=== PATIENT | female | born 1940 | race Caucasian/White ===

== ENCOUNTER 2017-10-06 06:36 | Day surgery (SDC) | payer MEDICARE, BC ==
[~2017-10-06] VITALS: Ht 160 cm; Wt 80.5 kg
[2017-10-06 07:41] LABS: BASOPHILS 0.3 % (0-2); EOSINOPHILS 3.5 % (0-7); HEMATOCRIT 36.7 % (36.0-48.0); HEMOGLOBIN 12.6 g/dL (12-16); IMMATURE GRANULOCYTES 0.2 % (0-5); MCH 32.1 pg (26.0-34.0); MCHC 34.3 g/dL (31.0-37.0); MCV 93.4 fL (80.0-100.0); MEAN PLATELET VOLUME 9.8 fL (7.4-10.4); MONOCYTES 13.5 % (2-11); NEUTROPHILS 52.5 % (40-80); PLATELET COUNT 148 10x3/uL (130-400); RBC 3.93 10x6/uL (4.00-5.40); RDW 12.7 % (11.5-14.5); WBC 5.9 10x3/uL (4.8-10.8)
[2017-10-06 07:54] LABS: CALC OSMOLALITY 279 mosm/kg (275-300); CALCIUM 8.8 mg/dL (8.5-10.1); CARBON DIOXIDE 27.7 mmol/L (21.0-32.0); CHLORIDE - SERUM 104 mmol/L (98-107); CREATININE - SERUM 0.6 mg/dL (0.6-1.3); GLUCOSE 99 mg/dL (74-106); POTASSIUM - SERUM 3.4 mmol/L (3.5-5.1); SODIUM 141 mmol/L (136-145); UREA NITROGEN 11 mg/dL (7-18); eGFR NON AFRICAN AMERICAN > 90 mL/min (90-120)
[2017-10-06] MEDS ORDERED: LIPITOR10 MG (07:56)
[2017-10-06] MEDS ORDERED: ARMOUR THYROID60 M1 PO (07:57)
[2017-10-06] MEDS ORDERED: ARMOUR THYROID120 MG PO (07:57)
[2017-10-06] MEDS ORDERED: DIOVAN HCT 160/1 TAB PO (07:58)
[2017-10-06] MEDS ORDERED: PRESERVISION AR1 CAP PO (07:59)
[2017-10-06] MEDS ORDERED: CRANBERRY 400 M1 TA1 PO (07:59)
[2017-10-06] MEDS ORDERED: ZEAXANTHIN (08:00)
[2017-10-06] MEDS ORDERED: OMEGA 3 FISH OI1 CAP PO (08:01)
[2017-10-06] MEDS ORDERED: VITAMIN B COMPL1 TAB PO (08:01)
[2017-10-06] MEDS ORDERED: VITAMIN K2 (08:02)
[2017-10-06] MEDS ORDERED: VITAMIN A10000 UNIT PO (08:02)
[2017-10-06] MEDS ORDERED: VITAMIN C1000 MG (08:03)
[2017-10-06] MEDS ORDERED: VITAMIN D31000 UNIT PO (08:03)
[2017-10-06] MEDS ORDERED: BAYER CHEWABLE81 MG PO (08:03)
[2017-10-06] MEDS ORDERED: GALZIN50 MG PO (08:04)
[2017-10-06] MEDS ORDERED: CITRACAL + D E1 EACH PO (08:04)
[2017-10-06] MEDS ORDERED: MAGNESIUM GLUC500 M1 PO (08:04)
[2017-10-06] MEDS ORDERED: SELENIUM (08:05)
[2017-10-06] MEDS ORDERED: VITAMIN E400 UNI2 PO (08:05)
[2017-10-06] MEDS ORDERED: CHROMIUM PICO200 MC1 PO (08:05)
[2017-10-06] MEDS ORDERED: CO Q-10200 MG PO (08:06)
[2017-10-06] MEDS ORDERED: POTASSIUM99 M1 PO (08:06)
[2017-10-06] MEDS ORDERED: METHYFOLATE (08:07)
[2017-10-06] MEDS ORDERED: FIBERCON625 MG PO (08:07)
[2017-10-06] MEDS ORDERED: VITAMIN B 12 (08:08)
[2017-10-06] MEDS ORDERED: [UNRECOGNIZED DRUG - OTHER] (08:08)
[2017-10-06] MEDS ORDERED: ALPHA LIPOIC ACID (08:09)
[2017-10-06] MEDS ORDERED: BIOTIN5 MG PO (08:09)
[2017-10-06] MEDS ORDERED: L-LYSINE500 M1 (08:09)
[2017-10-06] MEDS ORDERED: [UNRECOGNIZED DRUG - OTHER] (08:10)
[2017-10-06 08:29] VITALS: BP 148/56; Ht 160 cm; Wt 80.5 kg
--- NOTE | 2017-10-06 10:30 | NUR ---
PT REC'D TO ROOM VIA STRETCHER. DROWSY, BUT RESPONDS TO VERBAL STIMULI. REQUESTED AND PROVIDED WATER.
--- NOTE | 2017-10-06 10:52 | NUR ---
ASSISTED UP TO BR, VOIDED, PASSED GAS AND BM. WASHCLOTHES PROVIDED.
--- NOTE | 2017-10-06 11:11 | NUR ---
IV D/C'D INTACT. D/C INSTRUCTIONS EXPLAINED TO PT. VOICED UNDERSTANDING. COPIES OF ALL GIVEN TO PT.
--- NOTE | 2017-10-06 11:17 | NUR ---
D/C'D HOME VIA W/C TO PRIVATE CAR.
--- NOTE | 2017-10-13 15:43 | OP ---
PATIENT NAME: RODRIGO BONILLA MEDICAL RECORD: [id number] :36 LOCATION:D.OPS ADMISSION DATE: SURGEON: SEDRICK DEVI MD DATE OF OPERATION: 10/06/2017 PREOPERATIVE DIAGNOSIS: History of colon polyps, in need of a surveillance colonoscopy. POSTOPERATIVE DIAGNOSES: History of colon polyps, in need of a surveillance colonoscopy with mild pandiverticulosis, no colonic masses, no colonic polyps. PROCEDURES: Total colonoscopy to cecum. SURGEON: Sedrick Devi MD NURSING COORDINATOR: None. BLOOD LOSS: Minimal. ANESTHESIA: IV sedation. COMPLICATIONS: None. The prep was suboptimal. There was still solid fecal material within the colon and rectum. ENDOSCOPIC COURSE: The patient was conveyed to the gastroenterology laboratory on 10/06/2017. IV sedation was induced by anesthesia staff. The patient was placed in the Begum position. A digital rectal examination was performed. A colonoscope was inserted through the anus. It was easily advanced to the cecum. I irrigated and aspirated extensively. I dragged the folds. The pullback was greater than a 50-minute pullback. I noted no colonic polyps or masses. The endoscope was then withdrawn under direct vision. Unless the patient has new symptoms such as rectal bleeding, her next colonoscopy can wait for 3 years. TRANSINT:[id number] Voice Confirmation ID: [id number] DOCUMENT ID: [id number] SEDRICK DEVI MD at 1543 CC: [id number] DICTATION DATE: 10/06/17 1019 DIRECTOR CONTENT MARKETING: 10/06/17 1039 [facility] 10/06/[address] [address]
--- NOTE | 2017-10-13 15:43 | HP ---
PATIENT: RODRIGO BONILLA MEDICAL RECORD: [id number] ACCOUNT: [id number] LOCATION:[facility] : 36 ADMISSION DATE: 10/06/17 HISTORY AND PHYSICAL EXAMINATION CHIEF COMPLAINT: History of colon polyps. HISTORY OF PRESENT ILLNESS: The patient had a colonoscopy on 08/29/2014. She is here for surveillance colonoscopy. At that time, she was found to have polyps in the cecum and the proximal ascending colon. The polyps were tubular adenomas. It appears that both might have been placed in the same specimen container. I reviewed the endoscopic photos personally. The risks, possible complications, and alternatives to procedure were explained to the patient. She has been having right lower quadrant abdominal pain. ALLERGIES: Include LEVAQUIN, NOVOCAIN, MARCAINE, SHELLFISH, CHLOROMYCETIN, ADHESIVES, WELL POLYSORB SUTURES. HOME MEDICINES: 1. Multivitamin. 2. Atorvastatin. 3. Thyroid supplementation. 4. Valsartan. 5. Trazodone. 6. FiberCon. SOCIAL HISTORY: Ex-smoker. PAST MEDICAL AND SURGICAL HISTORY: Atrial fibrillation. She has had an ablation, hypothyroidism, on replacement therapy, history of cholecystectomy, history of knee surgery, history of thyroid surgery, history of hysterectomy, history of left foot surgery, history of cardiac ablation, also hypertension. REVIEW OF SYSTEMS: Negative for CVA or seizures. Negative for neurologic problems. PHYSICAL EXAMINATION: GENERAL: The patient does not appear acutely ill. She does not appear chronically ill. VITAL SIGNS: Reviewed. The entire physical examination was performed in the presence of a female nurse. HEAD: External ears appear normal. EYES: Extraocular movements are intact. NECK: Trachea is midline. CHEST: No intercostal retractions. PULMONARY: Nonlabored, no stridor. ABDOMEN: Nontender even in the right lower quadrant. IMPRESSION: History of colon polyps for surveillance colonoscopy. PLAN: Will be surveillance colonoscopy. HISTORY AND PHYSICAL [id number] RODRIGO BONILLA TRANSINT:[id number] Voice Confirmation ID: [id number] DOCUMENT ID: [id number] SIVAKUMAR DEVI MD at 1543 CC: CLOVIS YAP MD and YVES THOMAS MD [id number] DICTATION DATE: 10/06/17 0941 TRANSIT PLANNING MANAGER: 10/06/17 0957 [facility] 10/06/17 [facility] [address] [place] [address]
== END 2017-10-06 11:25 | disposition home or self-care (01) ==
LOC: D.OPS 06:36
PROVIDERS: Anesthesiology
DX: Z12.11 Encounter for screening for malignant neoplasm of colon (principal); K57.30 Diverticulosis of large intestine without perforation or abscess without bleeding; Z86.010 Personal history of colon polyps; I48.91 Unspecified atrial fibrillation; E03.9 Hypothyroidism, unspecified; I10 Essential (primary) hypertension; Z79.899 Other long term (current) drug therapy; Z87.891 Personal history of nicotine dependence; Z88.8 Allergy status to other drugs, medicaments and biological substances; Z88.4 Allergy status to anesthetic agent; Z88.1 Allergy status to other antibiotic agents; Z91.013 Allergy to seafood